=== PATIENT | female | born 1980 | race Two or more races ===

== ENCOUNTER → 2024-04-27 | Outpatient (CLI) | payer BC, SELFPAY ==
--- NOTE | 2024-04-27 15:00 | XR_ITS ---
Examination: Pelvic ultrasound, transabdominal, complete Technique: Transabdominal ultrasound of the pelvis performed using grayscale imaging Date and time of exam: April 27, 2024 1504 hrs. Indications: History endometrial polyps Findings: Uterus 12.0 x 6.0 x 6.7 cm Benign uterine cysts Uterine fundal mass 2.2 x 3.1 x 2.7 cm Endometrial stripe 13 mm Right ovary 3.4 cm arterial flow Left ovary 3.7 cm arterial flow 13 mm follicular cyst Impression: Uterine fundal area of fibroid degeneration 2.2 x 3.1 x 2.7 cm
--- NOTE | 2024-04-27 15:00 | XR_ITS ---
Examination: Transvaginal ultrasound of the pelvis, complete Technique: Transvaginal sonographic images pelvis performed using oliveira scale imaging Exam date and time: April 27, 2024 1528 hrs. Indications: History left ovarian cystic disease history endometrial polyps Findings: Uterus 8.0 x 5.2 x 6.7 cm Uterine fundal area of fibroid degeneration 13 x 16 x 16 mm Endometrial stripe 0.9 mm Right ovary 3.6 cm arterial flow multiple follicles, the largest 27 mm, 6 mm calcification Left ovary 3.3 cm arterial flow, multiple follicles, the largest 12 mm Impression: Smaller uterine fibroid degeneration Multiple bilateral ovarian follicular cysts.
== END | disposition home or self-care (01) ==
PROVIDERS: PCP Family Medicine; Referring Provider Family Medicine; Visit Provider Family Medicine
DX: D25.9 Leiomyoma of uterus, unspecified (principal); N83.02 Follicular cyst of left ovary; N83.01 Follicular cyst of right ovary
CPT/HCPCS: 76830; 76856

== ENCOUNTER → 2024-06-04 | Outpatient (CLI) | payer BC, SELFPAY ==
--- NOTE | 2024-06-04 11:30 | XR_ITS ---
Examination: Abdomen sonogram, complete Date and time of exam: June 04, 2024 1119 hours INDICATIONS: Onset left lower abdominal pain beginning one week ago. Technique: Multiple real-time grayscale transabdominal sonographic images of the abdomen have been obtained. Findings: Negative for gallstones Gallbladder wall 0.2 cm Common bile duct 0.4 cm Pancreatic head 3.0 cm Aorta not enlarged. Liver 15 cm fatty infiltration Normal hepatopedal portal venous flow Patent IVC Right kidney 10.6 cm renal cortex 1.3 cm Multiple renal calculi, the largest 11 x 13 mm Left kidney 10.8 cm cortex 1.9 cm Multiple renal calculi, the largest 8 x 7 mm Spleen 10.1 cm IMPRESSION: Negative for cholelithiasis, negative for cholecystitis Fatty liver Bilateral nonobstructing renal calculi
== END | disposition home or self-care (01) ==
PROVIDERS: PCP Family Medicine; Referring Provider Family Medicine; Visit Provider Family Medicine
DX: K76.0 Fatty (change of) liver, not elsewhere classified (principal); N20.0 Calculus of kidney
CPT/HCPCS: 76700

== ENCOUNTER → 2025-02-17 | Outpatient (CLI) | payer BC, SELFPAY ==
--- NOTE | 2025-02-17 | XR_ITS ---
Examination: Bilateral hands, 6 views. 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
[2025-02-17 08:38] LABS: Basophils # (Auto) 0.0 Thou/mm3 (0.0-0.2); Basophils % (Auto) 1 % (0-2.5); Eosinophils # (Auto) 0.1 Thou/mm3 (0.0-0.5); Eosinophils % (Auto) 3 % (0-10); Hematocrit 42.8 % (36.0-46.0); Hemoglobin 14.5 g/dL (12.0-16.0); Immature Granulocytes Auto 0.02 Thou/mm3 (0.00-0.00); Lymphocytes # (Auto) 2.0 Thou/mm3 (1.0-4.8); Lymphocytes % (Auto) 43 % (10-50); Mean Corpuscular HGB Conc 33.9 g/dl (31.0-37.0); Mean Corpuscular Hemoglobin 30.0 pg (25.0-35.0); Mean Corpuscular Volume 89 fL (80-100); Monocytes # (Auto) 0.4 Thou/mm3 (0.0-0.8); Monocytes % (Auto) 10 % (0-12); Neutrophils # (Auto) 2.0 Thou/mm3 (1.8-7.7); Neutrophils % (Auto) 43 % (37-80); Nucleated Red Blood Cell # 0.00 Thou/mm3 (0.00-0.00); Nucleated Red Blood Cell % 0 /100 WBC (0); Platelet Count 150 Thou/mm3 (140-440); RDW Standard Deviation 38.8 fL (36.4-46.3); Red Blood Count 4.83 Miln/mm3 (4.00-5.20); White Blood Count 4.6 Thou/mm3 (3.6-11.0)
[2025-02-17 08:43] LABS: Glucose Estimated Average 169 mg/dL (80-131); Hemoglobin A1C 7.5 % Hgb (4.8-6.0)
[2025-02-17 08:47] LABS: Iron 77 mcg/dL (50-170); Percent Iron Saturation 23 % (20-55); Total Iron Binding Capacity 324 mcg/dL (250-425); Unsaturated Iron Binding 247 (225-295)
[2025-02-17 08:55] LABS: Folate 16.70 ng/mL (>5.38); Vitamin B12 592 pg/mL (211-911); Vitamin D 25 Hydroxy Total 32.1 ng/mL (7.3-40.2)
[2025-02-17 08:56] LABS: Alanine Aminotransferase 33 U/L (10-49); Albumin, Serum 4.5 gm/dL (3.5-5.0); Albumin/Globulin Ratio 1.5 (1.2-2.2); Alkaline Phosphatase 87 U/L (46-116); Anion Gap 12 (7-16); Aspartate Amino Transferase 28 U/L (0-34); BUN/Creatinine Ratio 11 Ratio (12-20); Bilirubin,Direct 0.1 mg/dL (0.0-0.3); Bilirubin,Total 0.6 mg/dL (0.3-1.2); Blood Urea Nitrogen 8 mg/dL (9-23); Calcium 9.3 mg/dL (8.3-10.6); Calcium (Corrected) 9.3 mg/dL (8.5-10.1); Carbon Dioxide 27.3 mMol/L (20.0-31.0); Chloride 104 mMol/L (98-107); Creatinine (Component) 0.7 mg/dL (0.6-1.3); Globulin 3.0 gm/dL (2.3-3.5); Glucose 162 mg/dL (74-106); Osmolality,Calculated 287 (275-295); Potassium 4.0 mMol/L (3.4-5.1); Sodium 143 mMol/L (136-145); Total Protein 7.5 gm/dL (5.7-8.2); Uric Acid 3.0 mg/dL (3.1-7.8); eGFR > 60 See Note
[2025-02-17 09:05] LABS: Sed Rate (ESR) 12 mm/hr (0-20)
[2025-02-17 15:55] LABS: RA Screen Negative (Negative)
[2025-02-24 08:45] LABS: ANA Screen, IFA POSITIVE (NEGATIVE); ANA Titer 1:320 titer
== END | disposition home or self-care (01) ==
LOC: CDIM 07:15 → COPL 07:23
PROVIDERS: PCP Family Medicine; Referring Provider Family Medicine; Visit Provider Radiology Diagnostic Radiology
DX: M19.042 Primary osteoarthritis, left hand (principal); M19.041 Primary osteoarthritis, right hand; M25.541 Pain in joints of right hand; R20.9 Unspecified disturbances of skin sensation; K76.0 Fatty (change of) liver, not elsewhere classified; N20.0 Calculus of kidney
CPT/HCPCS: 36415; 73130; 80053; 80076; 82248; 82306; 82607; 82746; 83036; 83540; 83550; 84550; 85025; 85652; 86038; 86039; 86430